=== PATIENT | male | born 1970 | race Caucasian/White ===

== ENCOUNTER 2019-06-27 16:42 | Emergency (ER) | payer OTHER ==
[~2019-06-27] VITALS: Ht 185.4 cm; Wt 90.3 kg
[2019-06-27 16:47] VITALS: Ht 185.4 cm; Wt 90.3 kg
[2019-06-27 20:45] VITALS: BP 137/95
== END 2019-06-27 20:45 | disposition home or self-care (01) ==
LOC: ED 16:42
DX: S20.212A Contusion of left front wall of thorax, initial encounter (principal); S00.03XA Contusion of scalp, initial encounter; Y04.0XXA Assault by unarmed brawl or fight, initial encounter; Y93.89 Activity, other specified; Y92.89 Other specified places as the place of occurrence of the external cause; Y99.8 Other external cause status